=== PATIENT | female | born 1980 | race Two or more races ===

== ENCOUNTER 2020-10-21 18:13 | Emergency (ER) | payer OTHER ==
[~2020-10-21] VITALS: Ht 170.2 cm; Wt 79.4 kg
[2020-10-22] MEDS ORDERED: LEVSIN/SL0.125 MG PO (09:29)
== END 2020-10-22 09:39 | disposition home or self-care (01) ==
LOC: ER 18:13
DX: K29.00 Acute gastritis without bleeding (principal); R10.13 Epigastric pain; K80.20 Calculus of gallbladder without cholecystitis without obstruction